=== PATIENT | female | born 2005 | race Caucasian/White ===

== ENCOUNTER 2024-12-10 10:33 | Outpatient (CLI) | payer OTHER, SELFPAY ==
[2024-12-17 15:22] LABS: Pap Test Digital Imaging Done; Pap Test Reviewed by Path Done
== END 2024-12-10 10:34 | disposition home or self-care (01) ==
LOC: NFLDREF 10:34
PROVIDERS: Visit Provider Obstetrics & Gynecology
DX: Z12.4 Encounter for screening for malignant neoplasm of cervix (principal)
CPT/HCPCS: 87624; 87625; 88141; 88142; 88175